=== PATIENT | female | born 1990 | race Caucasian/White ===

== ENCOUNTER 2022-07-01 18:53 | Emergency (ER) | payer SELFPAY ==
[2022-07-01 19:11] VITALS: BP 103/58; PULSE 77; RESP 18; TEMP 36.6; O2SAT 99
--- NOTE | 2022-07-01 19:13 | ED.ABDPAIN ---
HPI - Abdominal Pain General Chief Complaint: Nausea/Vomiting/Diarrhea Stated Complaint: Nausea,sob Time Seen by Provider: 07/01/22 19:12 Source: patient Mode of arrival: EMS Limitations: no limitations History of Present Illness HPI narrative: Patient with increased anxiety increased stress at home having panic attacks for last 5 days unable to sleep unable to eat or drink vomiting multiple times having carpopedal spasm feel depressed no suicidal ideation Related Data Previous Rx's Medication Instructions Recorded lorazepam 1 mg tablet (Ativan) 1 mg PO BEDTIME PRN anxiety #14 07/01/22 tabs ondansetron 4 mg disintegrating 4 mg PO Q6-8H PRN nausea and 07/01/22 tablet vomiting #7 tabs Allergies Allergy/AdvReac Type Severity Reaction Status Date / Time diphenhydramine Allergy Intermediate Rash Verified 07/01/22 19:16 [From Benadryl] Latex, Natural Rubber Allergy Intermediate Rash Verified 07/01/22 19:37 Review of Systems Review of Systems Yes all other systems are reviewed and are negative [facility] Past Medical History Medical History (Updated 07/01/22 @ 22:36 by Rafael Otero MD) Anxiety Social History Social History Advance Directives: No Advance Directives Information Provided: No Patient : No Physical Exam ED Vital Signs: Vital Signs - 24 hr 07/01/22 19:11 07/01/22 19:22 07/01/22 21:23 Temperature 97.8 F 98.2 F 98.0 F Pulse Rate 77 69 67 Respiratory Rate 18 22 H 14 Blood Pressure 103/58 L 104/62 112/59 L Pulse Oximetry 99 99 100 Oxygen Delivery Method Room Air Room Air Room Air 07/01/22 22:12 Temperature Pulse Rate 62 Respiratory Rate 14 Blood Pressure 106/69 Pulse Oximetry 97 Oxygen Delivery Method Room Air BMI result Body Mass Index 18.4 Appearance: Alert. Oriented X3. No acute distress. Anxious in carpal spasm Eyes: PERRLA, No Nystagmus ENT: Pharynx normal. Oral Mucosa moist Neck: Normal inspection. Neck supple. CVS: Normal heart rate and rhythm. Pulses normal. Respiratory: No respiratory distress. Equal air entry bilateral, no wheezing/rales/rhonchi Abdomen: Soft and nontender. Bowel sounds are present, no mass palpable, no CVA tenderness Skin: Skin warm and dry. Normal skin color. Normal skin turgor. Extremities: No lower extremity edema. No calf tenderness Neuro: Oriented X 3. No motor deficit. Medical Decision Making Medical Decision Making [facility] Narrative: Patient feeling better now taking p.o. fluids discharged patient home will give Ativan for anxiety Lab Data [facility] Lab Attestation statement: I reviewed the patient's lab results. Result Diagrams: 07/01/22 19:34 07/01/22 19:34 Labs: Lab Results 07/01/22 07/01/22 07/01/22 Range/Units 19:34 19:34 20:04 WBC 3.0 L (4.8-10.8) X10*3/uL RBC 4.81 (4.20-5.50) X10*6/uL Hgb 12.8 (12.0-16.0) g/dl Hct 38.8 (37.0-47.0) % MCV 80.7 (80.0-98.0) fL MCH 26.6 L (27.0-33.0) pg MCHC 33.0 (31.0-35.0) g/dl RDW 13.0 (11.0-16.0) % Plt Count 285 (160-400) X10*3/uL MPV 9.5 (9.4-12.3) fL Immature Gran % (Auto) 0.3 (0.0-0.4) % Neut % (Auto) 60.2 (45-73) % Lymph % (Auto) 31.6 (20-40) % Hamilton % (Auto) 7.6 (2-11) % Eos % (Auto) 0.0 (0-4) % Baso % (Auto) 0.3 (0-2) % Lymph # (Auto) 1.0 L (1.2-4.9) X10*3/uL Hamilton # (Auto) 0.2 (0.1-1.2) X10*3/uL Eos # (Auto) 0.0 (0.0-0.4) X10*3/uL Baso # (Auto) 0.0 (0.0-0.2) X10*3/uL Abs Immat Gran (auto) 0.01 (0.00-0.03) X10*3/uL Absolute Neuts (auto) 1.8 L (2.0-8.3) x10*3/uL Absolute Nucleated RBC 0.000 (0.0-0.012) X10*3/uL Nucleated RBC % (auto) 0.0 (0.0-0.2) /100WBC Smear Tech's Comments VERIFIED Sodium 136 (135-145) mmol/L Potassium 3.0 L (3.3-5.1) mmol/L Chloride 102 (96-108) mmol/L Carbon Dioxide 19 L (22-29) mmol/L Anion Gap 18 (12-20) BUN 11 (9-16) mg/dL Creatinine 0.69 (0.5-1.4) mg/dL Estim Creat Clear Calc 103.8 Estimated GFR > 60 Random Glucose 77 (60-115) mg/dL Calcium 8.8 (8.4-10.2) mg/dL Total Bilirubin 0.5 (0.0-1.0) mg/dL AST 19 (5-31) U/L ALT 14 (0-31) U/L Alkaline Phosphatase 57 (39-117) U/L Total Protein 8.3 H (6.5-8.0) g/dL Albumin 4.2 (3.5-5.0) g/dL Urine Color Yellow Urine Appearance Clear Urine pH 6.5 (5.0-9.0) Ur Specific [place] >= 1.030 H (1.005-1.025) Urine Protein 30 (1+) H (Neg-Trace) mg/dL Urine Glucose (UA) Negative (Negative) mg/dL Urine Ketones >=160 (Negative) mg/dL Urine Blood Negative (Negative) Urine Nitrite Negative (Negative) Ur Leukocyte Esterase Negative (Negative) Urine RBC 0-2 (0-2) /HPF Urine WBC 0-5 (0-5) /HPF Ur Squamous Epith Cells 0-2 (0-2) /HPF Urine Bacteria None Seen (None Seen) Hyaline Casts 0-2 (0-2) /LPF Urine Opiates Screen (Not Detect) Urine Fentanyl Screen (Not Detect) Ur Barbiturates Screen (Not Detect) Ur Phencyclidine Scrn (Not Detect) Ur Amphetamines Screen (Not Detect) U Benzodiazepines Scrn (Not Detect) Urine Cocaine Screen (Not Detect) U Marijuana (THC) Screen (Not Detect) 07/01/22 Range/Units 20:04 WBC (4.8-10.8) X10*3/uL RBC (4.20-5.50) X10*6/uL Hgb (12.0-16.0) g/dl Hct (37.0-47.0) % MCV (80.0-98.0) fL MCH (27.0-33.0) pg MCHC (31.0-35.0) g/dl RDW (11.0-16.0) % Plt Count (160-400) X10*3/uL MPV (9.4-12.3) fL Immature Gran % (Auto) (0.0-0.4) % Neut % (Auto) (45-73) % Lymph % (Auto) (20-40) % Hamilton % (Auto) (2-11) % Eos % (Auto) (0-4) % Baso % (Auto) (0-2) % Lymph # (Auto) (1.2-4.9) X10*3/uL Hamilton # (Auto) (0.1-1.2) X10*3/uL Eos # (Auto) (0.0-0.4) X10*3/uL Baso # (Auto) (0.0-0.2) X10*3/uL Abs Immat Gran (auto) (0.00-0.03) X10*3/uL Absolute Neuts (auto) (2.0-8.3) x10*3/uL Absolute Nucleated RBC (0.0-0.012) X10*3/uL Nucleated RBC % (auto) (0.0-0.2) /100WBC Smear Tech's Comments Sodium (135-145) mmol/L Potassium (3.3-5.1) mmol/L Chloride (96-108) mmol/L Carbon Dioxide (22-29) mmol/L Anion Gap (12-20) BUN (9-16) mg/dL Creatinine (0.5-1.4) mg/dL Estim Creat Clear Calc Estimated GFR Random Glucose (60-115) mg/dL Calcium (8.4-10.2) mg/dL Total Bilirubin (0.0-1.0) mg/dL AST (5-31) U/L ALT (0-31) U/L Alkaline Phosphatase (39-117) U/L Total Protein (6.5-8.0) g/dL Albumin (3.5-5.0) g/dL Urine Color Urine Appearance Urine pH (5.0-9.0) Ur Specific [place] (1.005-1.025) Urine Protein (Neg-Trace) mg/dL Urine Glucose (UA) (Negative) mg/dL Urine Ketones (Negative) mg/dL Urine Blood (Negative) Urine Nitrite (Negative) Ur Leukocyte Esterase (Negative) Urine RBC (0-2) /HPF Urine WBC (0-5) /HPF Ur Squamous Epith Cells (0-2) /HPF Urine Bacteria (None Seen) Hyaline Casts (0-2) /LPF Urine Opiates Screen Not Detected (Not Detect) Urine Fentanyl Screen Not Detected (Not Detect) Ur Barbiturates Screen Not Detected (Not Detect) Ur Phencyclidine Scrn Not Detected (Not Detect) Ur Amphetamines Screen Not Detected (Not Detect) U Benzodiazepines Scrn Not Detected (Not Detect) Urine Cocaine Screen Not Detected (Not Detect) U Marijuana (THC) Screen POSITIVE H (Not Detect) Medications Administered Discontinued Medications Generic Name Dose Route Start Last Admin Trade Name Freq PRN Reason Stop Dose Admin Sodium Chloride 1,000 mls @ 999 mls/hr 07/01/22 19:17 07/01/22 20:40 Ns IV 07/01/22 20:17 Infused .Q1H1M ONE Infusion Potassium Chloride 10 meq in 100 mls @ 100 mls/hr 07/01/22 20:34 07/01/22 22:12 Potassium Chloride/H20 IV 07/01/22 21:33 Infused ONCE ONE Infusion Sodium Chloride 1,000 mls @ 999 mls/hr 07/01/22 20:34 07/01/22 22:12 Ns IV 07/01/22 21:34 Infused .Q1H1M ONE Infusion Lorazepam 1 mg 07/01/22 19:19 07/01/22 19:39 Lorazepam 2 Mg/Ml Vial IVPUSH 07/01/22 19:20 1 mg ONCE ONE Administration Ondansetron HCl 4 mg 07/01/22 19:18 07/01/22 19:39 Ondansetron Hcl 4 Mg/2 Ml Vial IVPUSH 07/01/22 19:19 4 mg ONCE ONE Administration Discharge Plan Discharge Clinical Impression: Acute anxiety, Vomiting Patient Disposition: Home, Self-Care Instructions: Acute Nausea and Vomiting (ED), Anxiety (ED) Additional Instructions: Drink plenty of fluids Take medicine for anxiety and vomiting as prescribed Follow with PCP Prescriptions: New ondansetron 4 mg tablet,disintegrating 4 mg PO Q6-8H PRN (Reason: nausea and vomiting) Qty: 7 0RF lorazepam [Ativan] 1 mg tablet 1 mg PO BEDTIME PRN (Reason: anxiety) Qty: 14 0RF Interventions: ED Discharge Assessment Last Done: 07/01/22 22:56 Discharge Date/Time: 07/01/22 22:57
[2022-07-01 19:22] VITALS: BP 104/62; BP 111/69; PULSE 60; PULSE 69; RESP 22; TEMP 36.8; O2SAT 98; O2SAT 99; BMI 18.4
[2022-07-01] MEDS: 0.9 % Sodium Chloride 1,000 ML 999 ML IV ×2 (19:39→20:57)
[2022-07-01] MEDS: ondansetron HCL 4 MG/2 ML VIAL IVPUSH (19:39)
[2022-07-01] MEDS: LORazepam 2 MG/ML VIAL 1 MG IVPUSH (19:39)
[2022-07-01 19:40] LABS: Basophils Percent Auto 0.3 % (0-2); Hematocrit 38.8 % (37.0-47.0); Hemoglobin 12.8 g/dl (12.0-16.0); Imm Gran Abs Auto 0.01 X10*3/uL (0.00-0.03); Imm Gran Pct Auto 0.3 % (0.0-0.4); Lymphocytes Percent Auto 31.6 % (20-40); MANUAL DIFF FLAG SCAN; Mean Corpuscular Hemoglobin 26.6 pg (27.0-33.0); Mean Corpuscular Volume 80.7 fL (80.0-98.0); Mean Platelet Volume 9.5 fL (9.4-12.3); Monocytes Absolute Auto 0.2 X10*3/uL (0.1-1.2); Monocytes Percent Auto 7.6 % (2-11); Neutrophils Absolute Auto 1.8 x10*3/uL (2.0-8.3); Neutrophils Percent Auto 60.2 % (45-73); Platelet Count 285 X10*3/uL (160-400); Red Blood Count 4.81 X10*6/uL (4.20-5.50); SCAN SMEAR FLAG 1
[2022-07-01 20:02] LABS: Alanine Aminotransferase 14 U/L (0-31); Albumin Level 4.2 g/dL (3.5-5.0); Alkaline Phosphatase 57 U/L (39-117); Anion Gap 18 (12-20); Aspartate Amino Transferase 19 U/L (5-31); Bilirubin Total 0.5 mg/dL (0.0-1.0); Blood Urea Nitrogen 11 mg/dL (9-16); Calcium 8.8 mg/dL (8.4-10.2); Carbon Dioxide 19 mmol/L (22-29); Chloride 102 mmol/L (96-108); Creatinine Clr Calc Pharmacy 103.8; Estimated Glomerular Filt Rate > 60; Glucose Random 77 mg/dL (60-115); Sodium 136 mmol/L (135-145); Total Protein 8.3 g/dL (6.5-8.0)
[2022-07-01 20:10] LABS: Appearance Urine Clear; Color Urine Yellow; Glucose Urine UA Negative (Negative); Leukocyte Esterase Urine Negative (Negative); Nitrite Urine Negative (Negative); PH 6.5 (5.0-9.0); Specific Gravity - Urine >= 1.030 (1.005-1.025); UMIC TRIGGER UACC YES; Urine Blood Negative (Negative); Urine Ketones >=160 mg/dL (Negative); Urine Protein 30 (1+) mg/dL (Neg-Trace)
[2022-07-01 20:12] LABS: SLIDE REVIEW VERIFIED
[2022-07-01 20:20] LABS: Amphetamine Screen Urine Not Detected (Not Detect); Bacteria Urine None Seen (None Seen); Barbiturates, Urine Not Detected (Not Detect); Benzodiazepines Screen Urine Not Detected (Not Detect); Cannabinoid Screen Urine POSITIVE (Not Detect); Cocaine Screen Urine Not Detected (Not Detect); Fentanyl, urine Not Detected (Not Detect); Hyaline Casts Urine 0-2 /LPF (0-2); Opiate Screen Urine Not Detected (Not Detect); Phencyclidine Screen Urine Not Detected (Not Detect); RBC Urine 0-2 /HPF (0-2); Squamous Epithelial Cell Urine 0-2 /HPF (0-2); WBC Urine 0-5 /HPF (0-5)
[2022-07-01] MEDS: Potassium Chloride/H20 10 MEQ/100 ML PIGGYBACK 100 MEQ IV (20:58)
--- NOTE | 2022-07-01 21:07 | PC.NURSE ---
Pt medicated as ordered. Sleeping at the bedside in no apparent distress. Breaths are even and unlabored. Will continue to monitor.
[2022-07-01 21:23] VITALS: BP 112/59; PULSE 67; RESP 14; TEMP 36.7; O2SAT 100
[2022-07-01 22:12] VITALS: BP 106/69; PULSE 62; RESP 14; O2SAT 97
--- NOTE | 2022-07-01 22:56 | PC.NURSE ---
IV removed with no complications. Pt tolerated well. Discharge instructions reviewed with pt. Pt verbalizes understanding.
== END 2022-07-01 22:57 | disposition home or self-care (01) ==
PROVIDERS: Emergency Provider Internal Medicine
DX: R06.02 Shortness of breath (principal); F41.1 Generalized anxiety disorder; F43.0 Acute stress reaction; R11.2 Nausea with vomiting, unspecified; Z79.899 Other long term (current) drug therapy
CPT/HCPCS: 36415; 80053; 80307; 81001; 85025; 96361; 96374; 96375; 99284; J2060; J2405

== ENCOUNTER 2022-09-18 17:56 | Emergency (ER) | payer MEDICAID, SELFPAY ==
[2022-09-18 18:02] VITALS: BP 120/82; PULSE 75; O2SAT 16
--- NOTE | 2022-09-18 18:20 | PC.NURSE ---
pt was in mwr in wheelchair and lay herself on the ground while talking on the phone, when Katia BARILLAS and I attempted to help she began screaming and telling the person on the phone to call 911 to bring her to a different hospital, the person on the phone talked her into staying and pt now speaking w katia barillas, pt hyperventilating and reports anxiety worse because of the people in the [place] and a child screaming
[2022-09-18 18:22] VITALS: BP 110/54; PULSE 88; RESP 18; TEMP 36.6; O2SAT 98; BMI 18.8
--- NOTE | 2022-09-18 18:24 | ED_ITS ---
HPI - Psych General Chief Complaint: Anxiety <ERAN Spence - Last Filed: 09/18/22 18:26> Stated Complaint: anxiety <ERAN Spence - Last Filed: 09/18/22 18:26> Time Seen by Provider: 09/18/22 18:55 <ERAN Spence - Last Filed: 09/18/22 18:26> Source: patient <Rafael Otero MD - Last Filed: 09/18/22 19:08> Mode of arrival: EMS <Rafael Otero MD - Last Filed: 09/18/22 19:08> Limitations: no limitations <Rafael Otero MD - Last Filed: 09/18/22 19:08> History of Present Illness HPI Narrative: Patient with History of anxiety/panic attacks multiple deaths in the family in last 2 years on clonidine missed her dose in the morning was very anxious on arrival with carpopedal spasm has not seen psychiatrist yet patient received 2 mg of Ativan in triage feeling much better at this time no significant depression no SI patient feels safe at home <Rafael Otero MD - Last Filed: 09/18/22 19:08> Related Data Home Medications: Previous Rx's Medication Instructions Recorded lorazepam 1 mg tablet (Ativan) 1 mg PO BEDTIME PRN anxiety #14 07/01/22 tabs ondansetron 4 mg disintegrating 4 mg PO Q6-8H PRN nausea and 07/01/22 tablet vomiting #7 tabs lorazepam 1 mg tablet (Ativan) 1 mg PO BID PRN anxiety #20 tabs 09/18/22 <ERAN Spence - Last Filed: 09/18/22 18:26> Allergies/Adverse Reactions: Allergies Allergy/AdvReac Type Severity Reaction Status Date / Time diphenhydramine Allergy Intermediate Rash Verified 07/01/22 19:16 [From Benadryl] Latex, Natural Rubber Allergy Intermediate Rash Verified 07/01/22 19:37 <ERAN Spence - Last Filed: 09/18/22 18:26> Review of Systems Review of Systems: Yes all other systems are reviewed and are negative <Rafael Otero MD - Last Filed: 09/18/22 19:08> [facility] Past Medical History Medical History: Medical History Anxiety <ERAN Spence - Last Filed: 09/18/22 18:26> Social History Social History: Social History Alcohol intake: current Alcohol intake frequency: a few times a month Smoked in Last 30 Days: No Use of substances other than those prescribed or required for medical reasons: Yes Substance Use Type: Marijuana <ERAN Spence - Last Filed: 09/18/22 18:26> Physical Exam Vital Signs: Vital Signs: Last Vital Signs Temp 98 F 09/18/22 18:22 Pulse 88 09/18/22 18:22 Resp 18 09/18/22 18:22 BP 110/54 L 09/18/22 18:22 Pulse Ox 98 09/18/22 18:22 O2 Del Method 09/18/22 18:22 BMI result Body Mass Index 18.8 <ERAN Spence - Last Filed: 09/18/22 18:26> Vital Signs: Last Vital Signs Temp 98 F 09/18/22 18:22 Pulse 88 09/18/22 18:22 Resp 18 09/18/22 18:22 BP 110/54 L 09/18/22 18:22 Pulse Ox 98 09/18/22 18:22 O2 Del Method 09/18/22 18:22 BMI result Body Mass Index 18.8 <Rafael Otero MD - Last Filed: 09/18/22 19:08> Appearance: Alert. Oriented X3. Anxious Eyes: PERRLA, ENT: Pharynx normal. Oral Mucosa moist Neck: Normal inspection. Neck supple. CVS: Normal heart rate and rhythm. Pulses normal. Respiratory: No respiratory distress. Equal air entry bilateral, no wheezing/rales/rhonchi Abdomen: Soft and nontender. Skin: Skin warm and dry. Normal skin color. Normal skin turgor. Extremities: No lower extremity edema. No calf tenderness psych: Anxious no SI no hallucinations or delusions cooperative Neuro: Oriented X 3. No motor deficit. <Rafael Otero MD - Last Filed: 09/18/22 19:08> Course Course Course Narrative: This is an RME: Additional HPI, ROS, PE not included below will be deferred to primary provider. 32-year-old female history of anxiety, depression presents with acute anxiety, panic attack, depression reports recent loss of multiple family members all within a year, she is having a hard time coping. On the phone with behavioral health counselor who tells me she has complex anxiety attacks. Denies SI and HI. Denies visual, auditory tactile hallucinations. Hyperventilating reporting numbness to hands. No medical complaints. Tells me this is her typical anxiety attack. Tells me she usually takes clonidine however did not take it today. Physical exam patient is hyperventilating and anxious. Regular rate and rhythm. Lungs clear. Abdomen soft nontender nondistended. Alert and oriented x4. Plan at this time medical clearance evaluation by behavioral health team <ERAN Spence - Last Filed: 09/18/22 18:26> Medications Administered Discontinued Medications Generic Name Dose Route Start Last Admin Trade Name Freq PRN Reason Stop Dose Admin Lorazepam 2 mg 09/18/22 18:23 09/18/22 18:34 Lorazepam 1 Mg Tablet PO 09/18/22 18:24 2 mg ONCE ONE Administration <ERAN Spence - Last Filed: 09/18/22 18:26> Medications Administered Discontinued Medications Generic Name Dose Route Start Last Admin Trade Name Freq PRN Reason Stop Dose Admin Lorazepam 2 mg 09/18/22 18:23 09/18/22 18:34 Lorazepam 1 Mg Tablet PO 09/18/22 18:24 2 mg ONCE ONE Administration <Rafael Otero MD - Last Filed: 09/18/22 19:08> Medical Decision Making Medical Decision Making MDM Narrative: Patient with history of anxiety/panic attack got worse after multiple deaths in the family on clonidine will discharge patient home on Ativan for breakthrough panic attack <Rafael Otero MD - Last Filed: 09/18/22 19:08> Discharge Plan Discharge Clinical Impression: Acute anxiety <ERAN Spence - Last Filed: 09/18/22 18:26> Patient Disposition: Home, Self-Care <ERAN Spence - Last Filed: 09/18/22 18:26> Instructions: Panic Disorder (ED) <ERAN Spence - Last Filed: 09/18/22 18:26> Additional Instructions: Continue taking your prescribed medication Ativan for severe anxiety Follow-up with your psychiatrist/PCP <ERAN Spence - Last Filed: 09/18/22 18:26> Prescriptions: New lorazepam [Ativan] 1 mg tablet 1 mg PO BID PRN (Reason: anxiety) Qty: 20 0RF No Action ondansetron 4 mg tablet,disintegrating 4 mg PO Q6-8H PRN (Reason: nausea and vomiting) Qty: 7 0RF lorazepam [Ativan] 1 mg tablet 1 mg PO BEDTIME PRN (Reason: anxiety) Qty: 14 0RF <ERAN Spence - Last Filed: 09/18/22 18:26>
[2022-09-18] MEDS: LORazepam 1 MG TABLET 2 MG PO (18:34)
--- NOTE | 2022-09-18 18:36 | PC.NURSE ---
pt medicated per provider order.
--- NOTE | 2022-09-18 18:40 | PC.NURSE ---
pt a&ox3, vss, reporting panic attack, hx of same, medicated per provider order, pt medicated per provider order, tech obtaining labs. pt changed over and belongings secured.
--- NOTE | 2022-09-18 18:53 | PC.NURSE ---
pt requesting to leave post medication, pt pending ED provider.
--- NOTE | 2022-09-18 18:57 | MHC.CARE ---
Care Team met with Lillie to see if she needed additional supports prior to discharge. Pt reported no that she has her network of support; therapist, psychiatrist, and cardiac care nurse. She reported having an anxiety attack and being unable to open PRN medication. She reported no follow up needed she has processed with therapist already.
--- OUTSIDE RECORDS SUMMARY | 2022-09-18 19:11 | XMS_ITS | Continuity of Care Document ---
:1990 Author Organization [facility] Address [address] [place] [address] Drive [address] [place] [address]- Care Team Providers Name Role Phone Not on Staff, PCP Primary Care Physician Unavailable Encounter [facility] Date(s): 04/06/20 - 05/06/[address] [place], [place] [address] Allergies, Adverse Reactions, Alerts Substance Reaction Severity Status Benadryl Active Latex Active Immunizations Given and Recorded Vaccine Date Status Refusal Reason influenza virus vaccine, inactivated 06/04/14 Given influenza virus vaccine, inactivated 07/15/13 Given Human Papillomavirus Vaccine1 04/13/11 Given Influenza Vaccine (oldterm)2 04/13/11 Given tetanus/diphtheria/pertussis, acel(Tdap) 04/15/10 Given 1Admin Note: VIS GIVEN 08/02/062Admin Note: VIS GIVEN [id number] Medications albuterol 0.083% inhalation solution See Instructions, PRN as needed for wheezing, cough, 3 ml Neb Every 4 hours as needed for cough, wheeze, # 50 each, 1 Refills, Maintenance, 06/04/14 13:30:42, 3 ml Neb Every 4 hours as needed for cough, wheeze,PRN:as needed for wheezing, cough Start Date: 06/04/14 Status: Orderedferrous sulfate 325 mg oral enteric coated tablet 325 mg, 1, tablet, By Mouth, Daily, # 90 tablet, Refills 3, Tot. Refills 3, Maintenance, 05/30/18 14:42:40 EST, Route to Pharmacy Electronically, [id number], [facility] Start Date: 05/30/18 Status: Orderedfluticasone CFC free 220 mcg/inh inhalation aerosol with adapter 2 puffs, Inhalation, 2 times a day, (rinse mouth and throat after use), # 12 Gm, 11 Refills, Maintenance, 06/04/14 13:30:46, 2 puffs Inhalation 2 times a day,Instr:(rinse mouth and throat after use) Start Date: 06/04/14 Status: Orderedibuprofen 600 mg oral tablet 600 mg, 1, tablet, By Mouth, Every 8 hours, # 30 tablet, Refills 0, Tot. Refills 0, Maintenance, 05/01/17 16:03:04, Print Requisition Start Date: 05/01/17 Status: OrderedNebulizer/Compressor See Instructions, # 1 application, Maintenance, use with albuterol, 11/24/10 11:10:08 Start Date: 11/24/10 Status: OrderedPrenatal Multivitamins with FA 0.8 mg oral tablet 1 tablet, By Mouth, Daily, # 100 tablet, 2 Refills, Maintenance, 03/30/18 3:30:29 EDT, Tablet, 1 tablet By Mouth Daily Start Date: 03/30/18 Status: OrderedPrenatal Multivitamins with Folic Acid 1 mg oral tablet 1 tablet, By Mouth, Daily, # 90 tablet, 3 Refills, Maintenance, 02/28/18 12:26:59 EDT, Tablet, 1 tablet By Mouth Daily Start Date: 02/28/18 Status: OrderedPrenatal Multivitamins with Vitamin B Complex, Vitamin C, Minerals and L-Methylfolate oral capsule 1 capsule, By Mouth, Daily, # 90 tablet, 5 Refills, Maintenance, 04/04/18 14:04:03 EDT, Capsule, 1 capsule By Mouth Daily Start Date: 04/04/18 Status: OrderedProAir HFA 90 mcg/inh inhalation aerosol with adapter 2, puffs, Inhalation, Every 4 hours, PRN, # 18 Gm, Refills 11, Tot. Refills 11, Maintenance, wheezing, 11/30/16 10:08:48, Route to Pharmacy Electronically, [id number], [facility]/pharmacy #[id number] Start Date: 11/30/16 Status: Orderedspacer for inhaler spacer for inhaler, See Instructions, # 1 box, Refills 0, Tot. Refills 0, Maintenance, for use with inhaler bid; dx= asthma, 01/11/12 9:58:41 Start Date: 01/11/12 Status: OrderedTrileptal 600 mg oral tablet 1 tablet = 600 mg, By Mouth, 2 times a day, start off taking 1/2 tab bid x 1 wk then 1 in am and 1/2in pm x 1 wk then 1 bid, # 60 tablet, 5 Refills, Maintenance, 03/07/17 14:25:47 Start Date: 03/07/17 Status: OrderedZofran ODT 4 mg oral tablet, disintegrating 1 tablet = 4 mg, By Mouth, 2 times a day, # 10 tablet, 0 Refills, Maintenance, 12/09/16 15:43:17 Start Date: 12/09/16 Stop Date: 12/14/16 Status: Ordered Problem List Condition Effective Dates Status Health Status Informant Abnormal Pap smear of Active cervix(Confirmed) Asthma(Confirmed) Active History of chlamydia(Confirmed) Active ASCUS with positive high risk Active HPV(Confirmed)1 Latex allergy(Confirmed) Active (Confirmed) Active Nicotine dependence, cigarettes, with Active unspecified nicotine-induced disorders(Confirmed) 1pap 06/04/14 with ascus, HPV + Social History Social History Type Response Smoking Status Current every day smoker; To bacco user in household: No; Other: 1 per day; entered on: 03/06/18 Sex
--- OUTSIDE RECORDS SUMMARY | 2022-09-18 19:11 | XMS_ITS | Continuity of Care Document ---
:1990 Author Organization [facility] Address [address] [place] [id number]- Care Team Providers Name Role Phone Not on Staff, PCP Primary Care Physician Unavailable Encounter [facility] Date(s): 02/23/21 - 02/23/[address] [address]- Encounter Diagnosis Foreign body sensation in throat (Final) - 02/23/21 Discharge Disposition: A-D/C Home Attending Physician: Inocente Sanchez MD Admitting Physician: Inocente Sanchez MD Referring Physician: Not on Staff, Referring MD Allergies, Adverse Reactions, Alerts Substance Reaction Severity Status Benadryl Active Latex Active Immunizations Given and Recorded Vaccine Date Status Refusal Reason influenza virus vaccine, inactivated 06/04/14 Given influenza virus vaccine, inactivated 07/15/13 Given Human Papillomavirus Vaccine1 04/13/11 Given Influenza Vaccine (oldterm)2 04/13/11 Given tetanus/diphtheria/pertussis, acel(Tdap) 04/15/10 Given 1Admin Note: VIS GIVEN 08/02/062Admin Note: VIS GIVEN [id number] Medications albuterol 0.083% inhalation solution See Instructions, [...] 05/30/18 14:42:40 EST, Route to Pharmacy Electronically, [id number], [facility] Start Date: 05/30/18 Status: Orderedfluticasone [...] wheezing, 11/30/16 10:08:48, Route to Pharmacy Electronically, [id number], [facility]/pharmacy #[id number] Start Date: 11/30/16 Status: Orderedspacer for inhaler [...] disorders(Confirmed) 1pap 06/04/14 with ascus, HPV + Results Radiology Reports Exam Date Time Procedure Performing Provider Status 02/23/21 2:33 AM Neck Soft Tissue Magaly Stephens; Zamzam (Verified) Notes:(Neck Soft Tissue) Reason For Exam: Foreign BodyRESULT: Neck Soft Tissue Neck Soft Tissue INDICATION: Bullous change/choking sensation, question stuck chicken bone COMPARISON: CT from today FINDINGS: Patent nasopharynx. No abnormal adenoidal enlargement. Normal retropharyngeal and retrotracheal soft tissues. Opacities in the region of the upper most cervical esophagus likely represent calcification of the thyroid cartilage/arytenoids. No convincing evidence of foreign body. Normal airway. Normal bones. IMPRESSION: No radiopaque foreign body. I have personally reviewed the images and I agree with this report. WSN: [id number] Ordering Physician: Christa Swanson Dictated By: Leonard Finnegan DO Dictated Date/Time: 02/23/21 8:04 am Reviewed By: Lucas Schneider MD Signed By: Lucas Schneider MD Signed Date/Time: 02/23/21 8:09 am Transcribed By: CSScot Transcribed Date/Time: 02/23/21 7:48 am Vital Signs Most recent to oldest 1 2 3 [Reference Range]: Oxygen Saturation [94-100 %] 98 % 98 % 98 % (02/23/21 8:10 AM) (02/23/21 6:32 AM) (02/23/21 5:0 0 AM) Pulse Rate [55-90 bpm] 91 bpm 76 bpm 76 bpm *H* (02/23/21 6:32 AM) (02/23/21 5:00 AM) (02/23/21 8:10 AM) Blood Pressure [90-138/55-84 mm 98/57 mm Hg 108/50 mm Hg 106/72 mm Hg Hg] (02/23/21 8:10 AM) (02/23/21 6:32 AM) (02/23/21 5:0 0 AM) Respiratory Rate [16-30 br/min] 20 br/min 18 br/min 16 br/min (02/23/21 8:10 AM) (02/23/21 6:32 AM) (02/23/21 5:0 0 AM) Temperature [96.8-100.4 DegF] 98.5 DegF (02/23/21 6:32 AM) Liters per Minute 2 L/min (02/23/21 4:04 AM) Mode of Delivery (Oxygen) Room air Room air Room a ir (02/23/21 8:10 AM) (02/23/21 6:32 AM) (02/23/21 5:0 0 AM) Blood pressure sites Arm, right Arm, right Arm, right (02/23/21 8:10 AM) (02/23/21 6:32 AM) (02/23/21 5:0 0 AM) Social History Social History Type Response Smoking Status Current every day smoker; To bacco user in household: No; Other: 1 per day; entered on: 03/06/18 Sex
--- OUTSIDE RECORDS SUMMARY | 2022-09-18 19:11 | XMS_ITS | Continuity of Care Document ---
:1990 Author Organization [facility] Address [address] [place] [address]- Care Team Providers Name Role Phone Not on Staff, PCP Primary Care Physician Unavailable Encounter [facility] Date(s): 02/16/20 - 04/01/[address] [address]- [facility] Attending Physician: Not on Staff, Attending MD Allergies, Adverse Reactions, Alerts Substance Reaction Severity Status Benadryl Active Latex Active Immunizations Given and Recorded Vaccine Date Status Refusal Reason influenza virus vaccine, inactivated 06/04/14 Given influenza virus vaccine, inactivated 07/15/13 Given Human Papillomavirus Vaccine1 04/13/11 Given Influenza Vaccine (oldterm)2 04/13/11 Given tetanus/diphtheria/pertussis, acel(Tdap) 04/15/10 Given 1Admin Note: VIS GIVEN 08/02/062Admin Note: VIS GIVEN 2526-2711 Medications albuterol 0.083% inhalation solution See Instructions, [...] 05/30/18 14:42:40 EST, Route to Pharmacy Electronically, [id number], [facility] Start Date: 05/30/18 Status: Orderedfluticasone [...] wheezing, 11/30/16 10:08:48, Route to Pharmacy Electronically, [id number], [facility]/pharmacy #[id number] Start Date: 11/30/16 Status: [...]
--- OUTSIDE RECORDS SUMMARY | 2022-09-18 19:11 | XMS_ITS | Continuity of Care Document ---
:1990 Author Organization [facility] Address [address] [place] [address]- Care Team Providers Name Role Phone Not on Staff, PCP Primary Care Physician Unavailable Encounter [facility] Date(s): 03/02/20 - 04/01/[address] [address]- [facility] Attending Physician: Admtr, Ar8 Allergies, Adverse Reactions, Alerts Substance Reaction Severity Status Benadryl Active Latex Active Immunizations Given and Recorded Vaccine Date Status Refusal Reason influenza virus vaccine, inactivated 06/04/14 Given influenza virus vaccine, inactivated 07/15/13 Given Human Papillomavirus Vaccine1 04/13/11 Given Influenza Vaccine (oldterm)2 04/13/11 Given tetanus/diphtheria/pertussis, acel(Tdap) 04/15/10 Given 1Admin Note: VIS GIVEN 08/02/062Admin Note: VIS GIVEN 3015-4595 Medications albuterol 0.083% inhalation solution See Instructions, [...] 05/30/18 14:42:40 EST, Route to Pharmacy Electronically, [id number], [facility] Start Date: 05/30/18 Status: Orderedfluticasone [...] wheezing, 11/30/16 10:08:48, Route to Pharmacy Electronically, [id number], [facility]/pharmacy #[id number] Start Date: 11/30/16 Status: Orderedspacer for [...] disorders(Confirmed) 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
== END 2022-09-18 19:10 | disposition home or self-care (01) ==
PROVIDERS: Emergency Provider Internal Medicine
DX: F41.1 Generalized anxiety disorder (principal); F43.0 Acute stress reaction; Z79.899 Other long term (current) drug therapy
CPT/HCPCS: 99284

== ENCOUNTER 2023-01-23 14:44 | Outpatient (REF) | payer MEDICAID, SELFPAY ==
[2023-01-23 16:13] LABS: MANUAL DIFF FLAG NO
[2023-01-23 16:47] LABS: Basophils Percent Auto 0.8 % (0-2); Eosinophils Absolute Auto 0.1 X10*3/uL (0.0-0.4); Eosinophils Percent Auto 2.1 % (0-4); Hematocrit 39.7 % (37.0-47.0); Hemoglobin 12.7 g/dl (12.0-16.0); Imm Gran Abs Auto 0.02 X10*3/uL (0.00-0.03); Imm Gran Pct Auto 0.4 % (0.0-0.4); Lymphocytes Absolute Auto 1.9 X10*3/uL (1.2-4.9); Lymphocytes Percent Auto 39.7 % (20-40); Mean Corpuscular Hemoglobin 28.5 pg (27.0-33.0); Mean Platelet Volume 9.7 fL (9.4-12.3); Monocytes Absolute Auto 0.5 X10*3/uL (0.1-1.2); Monocytes Percent Auto 9.7 % (2-11); Neutrophils Absolute Auto 2.3 x10*3/uL (2.0-8.3); Neutrophils Percent Auto 47.3 % (45-73); Platelet Count 348 X10*3/uL (160-400); Red Blood Count 4.46 X10*6/uL (4.20-5.50); Red Cell Distribution Width 13.4 % (11.0-16.0); White Blood Count 4.9 X10*3/uL (4.8-10.8)
[2023-01-23 16:48] LABS: Estimated Average Glucose 82 mg/dL; Hemoglobin A1c % 4.5 %
[2023-01-23 17:38] LABS: Alanine Aminotransferase 14 U/L (0-31); Albumin Level 4.3 g/dL (3.5-5.0); Alkaline Phosphatase 50 U/L (39-117); Anion Gap 13 (12-20); Aspartate Amino Transferase 19 U/L (5-31); Bilirubin Total 0.7 mg/dL (0.0-1.0); Blood Urea Nitrogen 10 mg/dL (9-16); Calcium 9.1 mg/dL (8.4-10.2); Carbon Dioxide 23 mmol/L (22-29); Chloride 106 mmol/L (96-108); Cholesterol 169 mg/dL; Estimated Glomerular Filt Rate > 60; Glucose Random 82 mg/dL (60-115); HDL Cholesterol 66 mg/dL; LDL Cholesterol Calculated 88 mg/dl; Potassium 4.2 mmol/L (3.3-5.1); Sodium 138 mmol/L (135-145); TSH reflex Free T4 1.26 uIU/mL (0.32-4.0); Total Protein 8.1 g/dL (6.5-8.0); Triglycerides 76 mg/dL
[2023-01-24 03:20] LABS: CT PCR NOT DETECTED (Not Detect.); NG PCR NOT DETECTED (Not Detect.)
[2023-01-24 07:45] LABS: Syphilis Screen Nonreactive (Nonreactive)
[2023-01-24 08:23] LABS: ~Hepatitis C Antibody Nonreactive (Nonreactive)
[2023-01-24 08:24] LABS: HBS Num1 38.69 mIU/mL (0-7.99); HBc Num1 0.11 S/CO (0.00-0.79); HBsAGNum1 0.31 S/CO (0.00-0.99); HIV AB/AG Nonreactive (Nonreactive); HIV Num 1 0.06 S/CO (0.00-0.99); Hepatitis B Core Antibody Nonreactive (Nonreactive); Hepatitis B Surface Antigen Negative (Negative); ~Hepatitis B Surface Antibody REACTIVE (Nonreactive)
== END 2023-01-23 14:45 | disposition home or self-care (01) ==
LOC: HO.HHCL 14:44
PROVIDERS: Visit Provider Student in an Organized Health Care Education/Training Program
DX: Z00.00 Encounter for general adult medical examination without abnormal findings (principal); Z11.4 Encounter for screening for human immunodeficiency virus [HIV]; A64 Unspecified sexually transmitted disease; R39.15 Urgency of urination
CPT/HCPCS: 0353U; 36415; 80053; 80061; 83036; 84443; 85025; 86704; 86706; 86780; 86803; 87086; 87340; 87389